=== PATIENT | male | born 1955 | race Caucasian/White ===

== ENCOUNTER 2019-01-30 02:55 | Emergency (ER) | payer BC, OTHER ==
[2019-01-30] MEDS ORDERED: KETOROLAC 30 MG/ML VIAL IVP ONE (03:10)
[2019-01-30] MEDS ORDERED: 0.9 % SODIUM CHLORIDE 1000ML 1,000 ML IV SCH (03:15)
[2019-01-30 03:21] LABS: ABSOLUTE NEUTROPHIL COUNT 5.45; BASO % 0.2 % (0-6); EOS % 3.3 % (0-6); GRAN % 56.9 % (47-80); HEMATOCRIT 45.9 % (42.0-52.0); HEMOGLOBIN 15.4 gm/dl (14.0-18.0); LYMPH % 27.8 % (16-45); MEAN CELL VOLUME 92.7 fl (81-97); MEAN CORPUSCULAR HEMOGLOBIN 31.1 pg (27-33); MEAN CORPUSCULAR HGB CONC 33.6 g/dl (32-36); MEAN PLATELET VOLUME 10.5 fl (7.4-10.4); MONO % 11.8 % (0-9); PLATELET COUNT 196 K/uL (130-400); RED BLOOD COUNT 4.95 M/uL (4.40-5.70); WHITE BLOOD COUNT W/O DIFF 9.6 K/uL (4.2-12.2)
[2019-01-30 03:22] LABS: URINE APPEARANCE CLEAR; URINE BILIRUBIN NEGATIVE (NEGATIVE); URINE BLOOD NEGATIVE (NEGATIVE); URINE COLOR YELLOW; URINE GLUCOSE (UA) NEGATIVE (NEGATIVE); URINE KETONE NEGATIVE (NEGATIVE); URINE LEUKOCYTE ESTERASE NEGATIVE (NEGATIVE); URINE NITRITE NEGATIVE (NEGATIVE); URINE PROTEIN NEGATIVE (NEGATIVE); URINE UROBILINOGEN 0.2 E.U./dL (0.20 - 1.00)
--- NOTE | 2019-01-30 03:22 | Emergency Department Record ---
History of Present Illness - General Chief complaint: Flank Pain Stated complaint: BACK PAIN Time Seen by Provider: 01/30/19 03:03 Source: Patient Mode of Arrival: Ambulatory Limitations: No limitations - History of Present Illness Initial comments: 63 yo male presents to ED for evaluation of right sided flank pain that radiates to the right lower abdomen, started approximately 10 hours ago, has been waxing and waning. Patient reports that he took Advill and drank lots of water that seemed to improve his symptoms. Patient denies health problems at his baseline, denies nausea, vomiting, fevers, chills, or recent illness. MD Complaint: Other (Flank pain) Onset/Timin -: Hour(s) Location: Right flank Radiation: R flank Severity: Moderate Severity scale (1-10): 7 Consistency: Intermittent Improves with: Medication, Rest Worsens with: Movement Lifting Reports: Denies other symptoms - Related Data Sexually active: Yes Home Medications Medication Instructions Recorded Confirmed Last Taken Pravastatin Sodium [Pravachol] 20 mg PO DAILY 01/30/19 01/30/19 01/29/19 Previous Rx's Medication Instructions Recorded Ibuprofen [Motrin] 800 mg PO Q6H PRN #30 tab 01/30/19 Allergies Allergy/AdvReac Type Severity Reaction Status Date / Time No Known Drug Allergies Allergy Verified 01/30/19 03:07 Travel Screening - Travel/Exposure Within Last 30 Days Have you traveled within the last 30 days?: No - Travel Symptoms Symptom Screening: None Review of Systems Constitutional: Denies: Chills, Fever, Malaise, Night sweats Eyes: Denies: Eye discharge, Eye pain ENT: Denies: Congestion, Ear pain, Epistaxis Respiratory: Denies: Cough, Dyspnea Cardiovascular: Denies: Chest pain, Dyspnea on exertion Endocrine: Denies: Fatigue, Heat or cold intolerance Gastrointestinal: Reports: Abdominal pain. Denies: Constipation, Nausea, Vomiting Genitourinary: Denies: Dysuria, Retention Musculoskeletal: Reports: Back pain. Denies: Arthralgia, Gout, Joint swelling Skin: Denies: Bruising, Change in color Neurological: Denies: Abnormal gait, Confusion, Headache, Seizure Psychiatric: Denies: Anxiety Hematological/Lymphatic: Denies: Anemia, Blood Clots Past Medical History - SOCIAL HISTORY Smoking Status: Never smoker Alcohol Use: Occasional Drug Use: None - RESPIRATORY Hx Respiratory Disorders: No - CARDIOVASCULAR Hx Cardio Disorders: No - NEURO Hx Neuro Disorders: Yes Hx Headaches: Yes - GI Hx GI Disorders: No - Hx Genitourinary Disorders: No - ENDOCRINE Hx Endocrine Disorders: No - MUSCULOSKELETAL Hx Musculoskeletal Disorders: No - PSYCH Hx Psych Problems: No - HEMATOLOGY/ONCOLOGY Hx Hematology/Oncology Disorders: No Family Medical History Any Significant Family History?: Yes Hx Diabetes: Brother/Sister Hx Heart Disease: Father, Mother Hx HTN: Brother/Sister Physical Exam - General General Appearance: Alert, Oriented x3, Cooperative, Mild distress Limitations: No limitations - Head Head exam: Atraumatic, Normocephalic, Normal inspection Head exam detail: negative: Abrasion, Contusion, Pierson's sign, General tenderness, Hematoma, Laceration - Eye Eye exam: Normal appearance. negative: Conjunctival injection, Periorbital swelling, Periorbital tenderness, Scleral icterus - ENT Ear exam: negative: Auricular hematoma, Auricular trauma Nasal Exam: negative: Active bleeding, Discharge, Dried blood, Foreign body Mouth exam: negative: Drooling, Laceration, Muffled voice, Tongue elevation - Neck Neck exam: Normal inspection. negative: Meningismus, Tenderness - Respiratory Respiratory exam: Normal lung sounds bilaterally. negative: Rales, Respiratory distress, Rhonchi, Stridor - Cardiovascular Cardiovascular Exam: Regular rate, Normal rhythm, Normal heart sounds - GI/Abdominal GI/Abdominal exam: Soft. negative: Rebound, Rigid, Tenderness - Rectal Rectal exam: Deferred - exam: Deferred - Extremities Extremities exam: Normal inspection. negative: Pedal edema, Tenderness - Back Back exam: Denies: CVA tenderness (R), CVA tenderness (L), Rash noted - Neurological Neurological exam: Alert, Normal gait, Oriented X3 - Psychiatric Psychiatric exam: Normal affect, Normal mood - Skin Skin exam: Normal color. negative: Abrasion Type of lesion: negative: abrasion Course Vital Signs 01/30/19 03:12 Temperature 98.3 F Pulse Rate [ 76 Left] Respiratory 16 Rate Blood Pressure 134/101 [Left] Pulse Ox 98 - Reevaluation(s) Reevaluation #1: 01/30/19 03:31 Laboratory studies were reviewed and appear grossly unremarkable for an acute process. Patient is going for CT imaging at this time. Reevaluation #2: 01/30/19 05:04 CT Abdomen/Pelvis: No acute process identified No obstructive uropathy Normal appendix Patient was updated on all results, reports improvement in his pain symptoms. Patient was instructed to return should a rash appears (shingles), will prescribe Motrin 800 mg as needed for pain symptoms. Patient appears stable for discharge at this time. Medical Decision Making - Lab Data Result diagrams: 01/30/19 03:05 01/30/19 03:05 Disposition Disposition: Discharge Clinical Impression: Flank pain, acute Disposition: Home, Self-Care Condition: (2) Stable Instructions: Flank Pain (ED) Additional Instructions: Return to ED if your symptoms worsen or if you have any concerns. Motrin 800 mg as directed. Follow-up with your family doctor in 1-3 days as directed. Prescriptions: Ibuprofen [Motrin] 800 mg PO Q6H PRN #30 tab PRN Reason: Pain - Mod To Severe (5-10) Forms: Patient Portal Access Time of Disposition: 05:04 Quality - Quality Measures Quality Measures: N/A - Blood Pressure Screening Does Patient Have Any of the Following: Active Dx of HTN Blood Pressure Classification: Pre-Hypertensive BP Reading Systolic Measurement: 124 Diastolic Measurement: 79 Screening for High Blood Pressure: Patient Exclusion, Hx of HTN [G9744]
[2019-01-30 03:30] LABS: BILIRUBIN,TOTAL 0.7 mg/dL (0.2-1.0); CREATININE 1.4 mg/dL (0.7-1.2)
[2019-01-30 03:36] LABS: ALBUMIN 4.5 g/dL (4.0-5.0)
[2019-01-30 03:37] LABS: ALB/GLOB RATIO 1.8 (1.1-1.8)
[2019-01-30] MEDS ORDERED: MORPHINE SULFATE 10MG/1ML **1ML VIAL IVP ONE (03:54)
[2019-01-30] MEDS ORDERED: ONDANSETRON HCL IV 4 MG/2 ML VIAL IVP ONE (03:54)
--- NOTE | 2019-01-30 14:00 | CT SCAN REPORT ---
EXAM: CT SCAN OF THE ABDOMEN AND PELVIS WITHOUT CONTRAST HISTORY: RIGHT FLANK PAIN AND RIGHT LOWER QUADRANT ABDOMINAL PAIN FOR THE PAST TEN HOURS. TECHNIQUE: Standard CT imaging of the abdomen and pelvis was performed without contrast. Additional coronal and sagittal reformatted images were also performed. Comparison: None. FINDINGS: There is mild dependent atelectasis within both lungs. Coronary artery calcifications are present. There are a few tiny hypodensities within the liver. These are too small to accurately characterize, but are suggestive of cysts or hemangiomas. The largest is located within the lateral segment of the left hepatic lobe and measures 9 mm. The gallbladder, biliary tree, pancreas, spleen, and adrenal glands are normal. There are two tiny punctate nonobstructing stones within the lower pole of the left kidney each measuring 2 mm in maximal dimension. Small bilateral parapelvic renal cysts are present. There is no hydronephrosis or obstructing calculus. The aorta is normal in caliber. There is no retroperitoneal lymphadenopathy. The large and small bowel loops are unremarkable. The appendix is visualized and is normal. There is no pneumoperitoneum or ascites. There is mild wall thickening of the urinary bladder which may be artifactual due to incomplete distention. The prostate is upper normal in size. There is a small fat containing umbilical hernia. There are no acute osseous abnormalities. IMPRESSION: 1. NO ACUTE INTRAABDOMINAL PATHOLOGY IDENTIFIED. THERE IS NO OBSTRUCTING CALCULUS OR HYDRONEPHROSIS. 2. TINY NONOBSTRUCTING STONES WITHIN THE LEFT KIDNEY. 3. SMALL BILATERAL PARAPELVIC RENAL CYSTS. 4. TINY HYPODENSITIES WITHIN THE LIVER WHICH ARE TOO SMALL TO CHARACTERIZE, BUT SUGGESTIVE OF CYSTS OR HEMANGIOMAS. 5. SMALL FAT CONTAINING UMBILICAL HERNIA. 6. CORONARY ARTERY CALCIFICATIONS. JOB NUMBER: [id number] [facility]
== END 2019-01-30 05:12 | disposition home or self-care (01) ==
LOC: ER 02:55
DX: I48.91 Unspecified atrial fibrillation (principal); N10 Acute pyelonephritis; I10 Essential (primary) hypertension; R94.5 Abnormal results of liver function studies; R10.11 Right upper quadrant pain; R10.31 Right lower quadrant pain
CPT/HCPCS: 71275; 74175; 74176; 80053; 81001; 81003; 85025; 85027; 85379; 85730; 93005; 93010; 96365; 96374; 96375; 99284; 99285; J0696; J1885; J2270; J2405; J7030

== ENCOUNTER 2019-01-30 19:55 | Emergency (ER) | payer BC ==
[2019-01-30] MEDS ORDERED: DILTIAZEM 25MG/5ML VIAL IV ONE (21:02)
[2019-01-30 21:03] LABS: ABSOLUTE NEUTROPHIL COUNT 10.08; HEMOGLOBIN 15.3 gm/dl (14.0-18.0); MEAN CELL VOLUME 91.6 fl (81-97); MEAN CORPUSCULAR HEMOGLOBIN 31.2 pg (27-33); MEAN PLATELET VOLUME 10.4 fl (7.4-10.4); PLATELET COUNT 179 K/uL (130-400); RED BLOOD COUNT 4.91 M/uL (4.40-5.70); RED CELL DISTRIBUTION WIDTH 12.8 % (11.5-14.5); WHITE BLOOD COUNT W/O DIFF 12.4 K/uL (4.2-12.2)
[2019-01-30 21:04] LABS: URINE APPEARANCE CLEAR; URINE BILIRUBIN NEGATIVE (NEGATIVE); URINE BLOOD NEGATIVE (NEGATIVE); URINE COLOR YELLOW; URINE GLUCOSE (UA) NEGATIVE (NEGATIVE); URINE KETONE 15 mg/dL (NEGATIVE); URINE LEUKOCYTE ESTERASE NEGATIVE (NEGATIVE); URINE NITRITE POSITIVE (NEGATIVE); URINE PROTEIN NEGATIVE (NEGATIVE); URINE UROBILINOGEN 0.2 E.U./dL (0.20 - 1.00)
[2019-01-30] MEDS ORDERED: 0.9 % SODIUM CHLORIDE 1,000 ML BAG IV ONE (21:08)
[2019-01-30 21:12] LABS: URINE BACTERIA FEW; URINE EPITHELIAL CELLS NONE SEEN (FEW); URINE RBC NONE SEEN (NONE SEEN); URINE WBC NONE SEEN (0-2/hpf)
[2019-01-30 21:16] LABS: CREATININE 1.3 mg/dL (0.7-1.2); TOTAL PROTEIN 6.8 g/dL (6.6-8.7)
[2019-01-30 21:21] LABS: ALB/GLOB RATIO 1.8 (1.1-1.8); ALBUMIN 4.4 g/dL (4.0-5.0)
[2019-01-30 21:38] LABS: PLATELET ESTIMATE NORMAL (NORMAL)
--- NOTE | 2019-01-30 22:05 | Emergency Department Record ---
History of Present Illness - General Chief complaint: Flank Pain Stated complaint: LT FLANK PAIN Time Seen by Provider: 01/30/19 20:27 Source: Patient Mode of Arrival: Ambulatory Limitations: No limitations - History of Present Illness Initial comments: pt was here last night for r flank pain. he had a neg ct. the pain continues and he returns. no n/v/c/d. pain is constant and nothing helps. he has never had anything like this. MD Complaint: Other Onset/Timin -: Days(s) Location: Right flank Radiation: Back, R flank, RUQ Severity: Moderate Severity scale (1-10): 9 Quality: Aching Consistency: Constant Improves with: None Worsens with: None Reports: Denies other symptoms - Related Data Previous Rx's Medication Instructions Recorded Ibuprofen [Motrin] 800 mg PO Q6H PRN #30 tab 01/30/19 Allergies Allergy/AdvReac Type Severity Reaction Status Date / Time No Known Drug Allergies Allergy Verified 01/30/19 20:06 Travel Screening - Travel/Exposure Within Last 30 Days Have you traveled within the last 30 days?: No - Travel/Exposure Within Last Year Have you traveled outside the [place] in the last year?: No - Additonal Travel Details Have you been exposed to anyone with a communicable illness?: No - Travel Symptoms Symptom Screening: None Review of Systems Reviewed: No additional complaints except as noted below Constitutional: Reports: As per HPI. Denies: Chills, Fever, Malaise, Night sweats, Weakness, Weight change Eyes: Reports: As per HPI. Denies: Eye discharge, Eye pain, Photophobia, Vision change ENT: Reports: As per HPI. Denies: Congestion, Dental pain, Ear pain, Epistaxis, Hearing loss, Throat pain Respiratory: Reports: As per HPI. Denies: Cough, Dyspnea, Hemoptysis, Stridor, Wheezes Cardiovascular: Reports: As per HPI. Denies: Arrhythmia, Chest pain, Dyspnea on exertion, Edema, Murmurs, Orthopnea, Palpitations, Paroxysmal nocturnal dyspnea, Rheumatic Fever, Syncope Endocrine: Reports: As per HPI. Denies: Fatigue, Heat or cold intolerance, Polydipsia, Polyuria Gastrointestinal: Reports: As per HPI, Abdominal pain. Denies: Constipation, Diarrhea, Hematemesis, Hematochezia, Melena, Nausea, Vomiting Genitourinary: Reports: As per HPI. Denies: Dysuria, Frequency, Hematuria, Incontinence, Retention, Testicular pain, Testicular mass, Urgency Musculoskeletal: Reports: As per HPI. Denies: Arthralgia, Back pain, Gout, Joint swelling, Myalgia, Neck pain Skin: Reports: As per HPI. Denies: Bruising, Change in color, Change in hair/nails, Lesions, Pruritus, Rash Neurological: Reports: As per HPI. Denies: Abnormal gait, Confusion, Headache, Numbness, Paresthesias, Seizure, Tingling, Tremors, Vertigo, Weakness Psychiatric: Reports: As per HPI. Denies: Anxiety, Auditory hallucinations, Depression, Homicidal thoughts, Suicidal thoughts, Visual hallucinations Hematological/Lymphatic: Reports: As per HPI. Denies: Anemia, Blood Clots, Easy bleeding, Easy bruising, Swollen glands Past Medical History - SOCIAL HISTORY Smoking Status: Never smoker Alcohol Use: Occasional Drug Use: None - RESPIRATORY Hx Respiratory Disorders: No - CARDIOVASCULAR Hx Cardio Disorders: No - NEURO Hx Neuro Disorders: Yes Hx Headaches: Yes - GI Hx GI Disorders: No - Hx Genitourinary Disorders: No - ENDOCRINE Hx Endocrine Disorders: No - MUSCULOSKELETAL Hx Musculoskeletal Disorders: No - PSYCH Hx Psych Problems: No - HEMATOLOGY/ONCOLOGY Hx Hematology/Oncology Disorders: No Family Medical History Any Significant Family History?: No Hx Diabetes: Brother/Sister Hx Heart Disease: Father, Mother Hx HTN: Brother/Sister Physical Exam - General General Appearance: Alert, Oriented x3, Cooperative, Mild distress - Head Head exam: Normal inspection - Eye Eye exam: Normal appearance, PERRL, EOMI Pupils: Normal accommodation - ENT ENT exam: Normal exam, Mucous membranes moist, Normal external ear exam, Normal orophraynx, TM's normal bilaterally Ear exam: Normal external inspection. negative: External canal tenderness Nasal Exam: Normal inspection. negative: Discharge, Sinus tenderness Mouth exam: Normal external inspection, Tongue normal Teeth exam: Normal inspection. negative: Dental caries Throat exam: Normal inspection. negative: Tonsillar erythema, Tonsillar exudate - Neck Neck exam: Normal inspection, Full ROM. negative: Tenderness - Respiratory Respiratory exam: Normal lung sounds bilaterally. negative: Respiratory distress - Cardiovascular Cardiovascular Exam: Regular rate, Normal heart sounds, Irregular rhythm - GI/Abdominal GI/Abdominal exam: Soft, Normal bowel sounds. negative: Tenderness - Rectal Rectal exam: Deferred - exam: Deferred - Extremities Extremities exam: Normal inspection, Full ROM, Normal capillary refill. negative: Tenderness - Back Back exam: Reports: Normal inspection, Full ROM. Denies: Muscle spasm, Rash noted, Tenderness - Neurological Neurological exam: Alert, CN II-XII intact, Normal gait, Oriented X3 - Psychiatric Psychiatric exam: Normal affect, Normal mood - Skin Skin exam: Dry, Intact, Normal color, Warm Course Vital Signs 01/30/19 01/30/19 01/30/19 20:00 21:20 21:53 Temperature 98.1 F Pulse Rate 80 Pulse Rate [ 78 97 H [employer] ] Respiratory 16 17 17 Rate Blood Pressure 139/90 Blood Pressure 147/94 145/89 [Right Arm] Pulse Ox 96 - Reevaluation(s) Reevaluation #1: 01/30/19 22:04 pt has new onset afib w pv[facility]. pain is nonreproducible 01/30/19 22:47 pt conts to be in afib/flutter w p[facility] Reevaluation #2: 01/30/19 23:25 pt d/w dr medel who accepted Reevaluation #3: 01/30/19 23:[address] neg for pe. possible pyelonephritis. no vascular blockages seen. liver enzymes elevated since last pm Reevaluation #4: 01/30/19 23:27 pt to be npo after midnight Medical Decision Making - Lab Data Result diagrams: 01/30/19 20:55 01/30/19 20:55 Lab Results 01/30/19 01/30/19 01/30/19 Range/Units 20:55 20:55 20:55 WBC 12.4 H (4.2-12.2) K/uL RBC 4.91 (4.40-5.70) M/uL Hgb 15.3 (14.0-18.0) gm/dl Hct 45.0 (42.0-52.0) % MCV 91.6 (81-97) fl MCH 31.2 (27-33) pg MCHC 34.0 (32-36) g/dl RDW 12.8 (11.5-14.5) % Plt Count 179 (130-400) K/uL MPV 10.4 (7.4-10.4) fl Neutrophils % 78.0 (47-80) % Eosinophils % Not Reportable Basophils % Not Reportable Absolute Neutrophils 10.08 Lymphocytes 11.0 L (16-45) % Monocytes 11.0 H (0-9) % Platelet Estimate Normal (NORMAL) RBC Morphology Normal D-Dimer 0.59 (0-0.59) mg/L FEU Sodium (136-145) mmol/L Potassium (3.4-4.5) mmol/L Chloride (98-107) mmol/L Carbon Dioxide (22-29) mmol/L Anion Gap (7-16) BUN (8-23) mg/dL Creatinine (0.7-1.2) mg/dL Estimated GFR mL/min Random Glucose (74-109) mg/dL Calcium (8.8-10.2) mg/dL Total Bilirubin (0.2-1.0) mg/dL AST (10.0-50.0) U/L ALT (<41) U/L Alkaline Phosphatase (40-129) U/L Total Protein (6.6-8.7) g/dL Albumin (4.0-5.0) g/dL Globulin (1.4-4.8) gm/dL Albumin/Globulin Ratio (1.1-1.8) Urine Color Yellow Urine Appearance Clear Urine pH 6.0 (5.0-8.0) Ur Specific [place]flake 1.010 (1.002-1.030) Urine Protein Negative (NEGATIVE) Urine Glucose (UA) Negative (NEGATIVE) Urine Ketones 15 mg/dl H (NEGATIVE) Urine Blood Negative (NEGATIVE) Urine Nitrite Positive H (NEGATIVE) Urine Bilirubin Negative (NEGATIVE) Urine Urobilinogen 0.2 (0.20 - 1.00) E.U./dL Ur Leukocyte Esterase Negative (NEGATIVE) Urine RBC None seen (NONE SEEN) Urine WBC None seen (0-2/hpf) Ur Epithelial Cells None seen (FEW) Urine Bacteria Few 01/30/19 Range/Units 20:55 WBC (4.2-12.2) K/uL RBC (4.40-5.70) M/uL Hgb (14.0-18.0) gm/dl Hct (42.0-52.0) % MCV (81-97) fl MCH (27-33) pg MCHC (32-36) g/dl RDW (11.5-14.5) % Plt Count (130-400) K/uL MPV (7.4-10.4) fl Neutrophils % (47-80) % Eosinophils % Basophils % Absolute Neutrophils Lymphocytes (16-45) % Monocytes (0-9) % Platelet Estimate (NORMAL) RBC Morphology D-Dimer (0-0.59) mg/L FEU Sodium 135 L (136-145) mmol/L Potassium 4.6 H (3.4-4.5) mmol/L Chloride 101 (98-107) mmol/L Carbon Dioxide 25.0 (22-29) mmol/L Anion Gap 9.0 (7-16) BUN 13 (8-23) mg/dL Creatinine 1.3 H (0.7-1.2) mg/dL Estimated GFR 59 mL/min Random Glucose 124 H (74-109) mg/dL Calcium 9.0 (8.8-10.2) mg/dL Total Bilirubin 1.00 (0.2-1.0) mg/dL AST 92 H (10.0-50.0) U/L ALT 80 H (<41) U/L Alkaline Phosphatase 52 (40-129) U/L Total Protein 6.8 (6.6-8.7) g/dL Albumin 4.4 (4.0-5.0) g/dL Globulin 2.4 (1.4-4.8) gm/dL Albumin/Globulin Ratio 1.8 (1.1-1.8) Urine Color Urine Appearance Urine pH (5.0-8.0) Ur Specific [place]fl[place] (1.002-1.030) Urine Protein (NEGATIVE) Urine Glucose (UA) (NEGATIVE) Urine Ketones (NEGATIVE) Urine Blood (NEGATIVE) Urine Nitrite (NEGATIVE) Urine Bilirubin (NEGATIVE) Urine Urobilinogen (0.20 - 1.00) E.U./dL Ur Leukocyte Esterase (NEGATIVE) Urine RBC (NONE SEEN) Urine WBC (0-2/hpf) Ur Epithelial Cells (FEW) Urine Bacteria Disposition Disposition: Transfer Clinical Impression: New onset a-fib, Pyelonephritis, Elevated liver enzymes Disposition: Acute Care Hospital Transfer Transfer To: [facility] Reason For Transfer: new onset afib Accepting Physician: dr medel Time Discussed w/Accepting Physician: 23:26 Condition: (1) Good Forms: Patient Portal Access Quality - Quality Measures Quality Measures: N/A - Blood Pressure Screening Does Patient Have Any of the Following: No Blood Pressure Classification: Hypertensive Reading Systolic Measurement: 139 Diastolic Measurement: 90 Screening for High Blood Pressure: < First Hypertensive BP, F/U Documented > [G8950] First Hypertensive Follow-up Interventions: Follow-up with rescreen GT 1 day and LT 4 weeks.
[2019-01-30] MEDS ORDERED: CEFTRIAXONE 1GM/50ML BAG 1 GM/50 ML BAG IVPB ONE (22:46)
[2019-01-30] MEDS ORDERED: HEPARIN SODIUM 1000 UNIT/1 ML 10ML VIAL IVP ONE (23:18)
[2019-01-30] MEDS ORDERED: HYDROMORPHONE HCL 2 MG/ML VIAL IVP ONE (23:24)
[2019-01-30] MEDS ORDERED: HEPARIN SODIUM/D5W 25,000 UNITS/500 ML BAG IV SCH (23:30)
--- NOTE | 2019-01-31 21:22 | CT ANGIOGRAM REPORT ---
EXAM: CT ANGIOGRAM CHEST/ABDOMEN CTA HISTORY: RIGHT FLANK AND RIGHT LOWER QUADRANT PAIN. RIGHT BACK PAIN. TECHNIQUE: CT angiography of the chest and abdomen was performed in the standard fashion following the bolus administration of 100 mL of Omnipaque-350. Additional multiplanar maximum-intensity projection and 3D volume-rendered reformatted images were performed on an independent workstation under concurrent supervision. COMPARISON: Previous noncontrast CT scan of the abdomen and pelvis from 01/30/2019. FINDINGS: CTA CHEST: The heart is normal in size. Coronary artery calcifications are present. The aorta is normal in caliber and without dissection. The pulmonary arterial tree appears grossly normal as visualized. There is no mediastinal or hilar lymphadenopathy. There is mild atelectasis within both lungs. There are no acute pulmonary infiltrates or effusions. There are no suspicious pulmonary nodules. There is no pneumothorax. The chest wall and axillary regions appear normal. There are no acute osseous abnormalities. CTA ABDOMEN: Small cysts are noted within the left hepatic lobe. The liver parenchyma is otherwise normal. The gallbladder, biliary tree, pancreas, spleen, and adrenal glands are normal. There are wedge-shaped areas of decreased enhancement throughout the right kidney with mild associated perinephric fat stranding. The appearance is suspicious for developing pyelonephritis. There is no hydronephrosis or obstructing calculus. The left kidney contains small parapelvic renal cysts but is otherwise unremarkable. There is no retroperitoneal lymphadenopathy. The visualized large and small bowel loops are normal. There is no pneumoperitoneum or ascites. The stomach appears normal. There is a small fat-containing umbilical hernia. There are no acute osseous abnormalities. The abdominal aorta demonstrates mild atherosclerotic calcifications but is normal in caliber. There is no dissection. There is no significant stenosis at the origins of the celiac trunk, superior mesenteric artery, bilateral renal arteries, or inferior mesenteric artery. Visualized portions of the iliac arteries are normal in caliber. IMPRESSION: 1. NO EVIDENCE FOR AORTIC ANEURYSM, DISSECTION, OR SIGNIFICANT VASCULAR STENOSIS. 2. NO ACUTE INTRATHORACIC PATHOLOGY. 3. WEDGE-SHAPED AREAS OF DECREASED ENHANCEMENT WITHIN THE RIGHT KIDNEY WITH ASSOCIATED PERINEPHRIC FAT STRANDING. THE APPEARANCE IS SUSPICIOUS FOR ACUTE PYELONEPHRITIS. CORRELATE WITH THE URINALYSIS FINDINGS. 4. SMALL HEPATIC AND LEFT RENAL CYSTS. 5. SMALL FAT-CONTAINING UMBILICAL HERNIA. JOB NUMBER: [id number] [facility]
== END 2019-01-31 01:10 | disposition short-term general hospital (02) ==
LOC: ER 19:55
DX: I48.91 Unspecified atrial fibrillation (principal); N10 Acute pyelonephritis; R94.5 Abnormal results of liver function studies
CPT/HCPCS: 71275; 74175; 80053; 81001; 85027; 85379; 85730; 93005; 93010; J0696; J7030